=== PATIENT | male | born 1965 | race Hispanic/Latino ===

== ENCOUNTER 2018-01-11 09:14 | Outpatient (CLI) | payer BC ==
--- NOTE | 2018-01-11 11:58 | RAD ---
FIVE VIEWS CERVICAL SPINE: 01/11/2018 HISTORY: Carpal tunnel syndrome bilateral upper extremities. The patient is having neck pain and bilateral heath nd and finger numbness for 8 months. FINDINGS: C1 cervicothoracic junction is seen on the lateral view. Vertebral body heights are within normal li mits. No fracture or subluxation is seen. Mild degenerative changes are seen at the C5-6 level with osteophyte formation and slight narrowing of the intervertebral disk space. Prevertebral soft tissu es are within normal limits. Carotid artery calcifications are seen overlying the neck bilaterally. IMPRESSION: 1. Mild degenerative changes at C5-6 level, but no fracture or subluxation seen involving the cervica l spine. No other osseous abnormality. 2. Carotid artery calcifications overlying the neck bilaterally. POS: [facility]
== END 2018-01-11 09:15 | disposition home or self-care (01) ==
LOC: SCSRAD 09:14
PROVIDERS: ATTEND Psychiatry & Neurology Neurology
DX: G56.03 Carpal tunnel syndrome, bilateral upper limbs (principal); M47.892 Other spondylosis, cervical region; I65.23 Occlusion and stenosis of bilateral carotid arteries
CPT/HCPCS: 72040

== ENCOUNTER 2019-05-13 19:13 | Inpatient (IN) | payer BC ==
[~2019-05-13 19:13] MED LIST: ISOVUE-370 76%-LOCM 1 ML ONE; Lidocaine 1% PF 5 ML VIAL ONE; Ondansetron PF 4 MG/2 ML Vial ONE; PHENYLEPHRINE-NS 100 MCG/ML 10 ML SYRINGE ONE; PROPOFOL 200 MG/20 ML VIAL ONE; Rocuronium Bromide 10 MG/ML (10ML VIAL) ONE; Succinylcholine Chloride 20 MG/ML 10 ml SYRINGE FS ONE; ePHEDrine 50 MG/ML VIAL ONE
[2019-05-13] MEDS ORDERED: Adacel (T-DAP) 0.5 ML SYRINGE ONE (19:15)
[2019-05-13] MEDS ORDERED: Ketorolac Tromethamine 30 MG/ML VIAL ONE (19:20)
[2019-05-13] MEDS ORDERED: Fentanyl 100 MCG/2 ML VIAL ONE ×2 (19:20→20:31)
[2019-05-13 19:34] LABS: #Basophils 0.1 thou/uL (0.0-0.2); #Eosinphils 0.2 thou/uL (0.0-0.7); #Lymphocytes 1.9 thou/uL (1.20-3.40); #Monocytes 0.6 thou/uL (0.11-0.59); #Neutrophils 8.2 thou/uL (1.40-6.50); %Basophils 0.7 % (0.0-1.0); %Eosinophils 1.9 % (0.0-10.0); %Monocytes 5.5 % (0.0-10.0); Hemoglobin 14.6 g/dL (14.0-18.0); Mean Corpuscular HGB CONC 33.2 g/dL (32.0-36.0); Mean Corpuscular Hemoglobin 32.8 pg (27.0-31.0); Mean Corpuscular Volume 98.6 fL (78.0-98.0); Mean Platelet Volume 7.7 fL (7.4-10.4); Platelet Count 183 thou/uL (130-400); RBC Distribution Width 11.3 % (11.5-14.5); Red Blood Cell (RBC) Count 4.45 mill/uL (4.70-6.10); White Blood Cell (WBC) Count 10.9 thou/uL (4.8-10.8)
[2019-05-13 19:43] LABS: INR-International Normal Ratio 1.1; PTT 25.8 SEC (22.9-36.1); Prothrombin Time 14.3 SEC (12.0-14.7)
--- NOTE | 2019-05-13 19:46 | CT ---
CT BRAIN NONCONTRAST: DATE: 05/13/2019 HISTORY: Trauma FINDINGS: There is no evidence of acute intra-axial or extra-axial hemorrhage. There is no midline shift or any other mass effect. There is no extra-axial fluid collection. There is no evidence of obstructive hydrocephalus. Calvarium is intact. IMPRESSION: No acute intracranial findings.
[2019-05-13 19:48] LABS: ALT (SGPT) 51 U/L (8-55); AST (SGOT) 33 U/L (5-34); Albumin 4.2 g/dL (3.5-5.0); Alkaline Phosphatase 85 U/L (40-150); Anion Gap 20 mmol/L (10-20); BUN (Urea Nitrogen) 13 mg/dL (8.4-25.7); Bilirubin, Total 0.5 mg/dL (0.2-1.2); Calc. Creatinine Clearance 0 mL/min (70-130); Calcium 9.3 mg/dL (7.8-10.44); Carbon Dioxide 18 mmol/L (22-29); Chloride 102 mmol/L (98-107); Estimated GFR-MDRD 51; Globulin 3.3 g/dL (2.4-3.5); Glucose 121 mg/dL (70-105); Magnesium 2.1 mg/dL (1.6-2.6); Potassium 3.3 mmol/L (3.5-5.1); Protein, Total 7.5 g/dL (6.0-8.3); Sodium 137 mmol/L (136-145)
[2019-05-13] MEDS ORDERED: Heparin 10,000 UNITS/1 ML VIAL ONE (19:50)
--- NOTE | 2019-05-13 19:53 | CT ---
Exam: CT cervical spine without contrast HISTORY: Trauma. Pain. COMPARISON: None FINDINGS: No craniocervical dissociation. Appropriate alignment of the lateral masses of C1 and C2. Intact odon toid process Appropriate alignment of the facets. Soft tissue neck structures: No mass, lymphadenopathy or hematoma. No prevertebral soft tissue swelli ng. Upper mediastinum and lung apices: Opacification of the right lung apex, incompletely evaluated Central spinal canal: Neural foramina and central spinal canal are patent. Evaluation is limited by t echnique Vertebral bodies: Cervical spine vertebral body height is maintained. No fracture. IMPRESSION: 1. No fracture 2. Right upper lobe opacity, incompletely evaluated. Chest CT is recommended.
--- NOTE | 2019-05-13 19:54 | RAD ---
Exam: Chest one view HISTORY:Trauma. Pain. Comparison: None FINDINGS: Cardiac silhouette:Enlarged, likely due to technique Pulmonary vessels: Normal Costophrenic angles: Asymmetric opacification of the right hemithorax. LUNGS: No masses or consolidation. Pneumothorax: None Osseous abnormalities: None IMPRESSION: Asymmetric opacification the right hemithorax. Refer to chest CT for further detail.
[2019-05-13] MEDS ORDERED: metroNIDAZOLE 500 MG/100 ML BAG ONE (19:56)
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
[2019-05-13] MEDS ORDERED: Midazolam HCl 2 mg/2 ml Vial ONE (20:31)
[2019-05-13] MEDS ORDERED: Phenylephrine HCL 10 MG/ML VIAL ONE (20:31)
[2019-05-13] MEDS ORDERED: SUGAMMADEX SODIUM 200 MG/2 ML VIAL ONE (20:47)
[2019-05-13] MEDS ORDERED: hydrALAZINE 20 MG/ML VIAL SLOW IVP PRN (20:58)
[2019-05-13] MEDS ORDERED: TETANUS AND DIPHTHERIA TOX/PF 0.5 ML DISP.SYRIN IM ONE (20:58)
[2019-05-13] MEDS ORDERED: Morphine 4 MG/ML VIAL SLOW IVP PRN ×2 (20:58→21:17)
[2019-05-13] MEDS ORDERED: Dextrose 5% in Water 1,000 ML IV PRN (20:58)
[2019-05-13] MEDS ORDERED: Dextrose 50% Abboject 50 ML SYRINGE SLOW IVP PRN (20:58)
[2019-05-13] MEDS ORDERED: Morphine 2 MG/ML SYRINGE SLOW IVP PRN (20:58)
[2019-05-13] MEDS ORDERED: Ondansetron PF 4 MG/2 ML Vial IVP PRN (20:58)
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
[2019-05-13] MEDS: Sodium Chloride 0.9% 1,000 ML IV SCH (21:20)
[2019-05-13] MEDS ORDERED: Gabapentin 100 MG CAP PO SCH (21:30)
--- NOTE | 2019-05-13 21:32 | RAD ---
Exam: Chest one view HISTORY:Status post trauma. Chest tube placement. Comparison: 05/13/2019 at 7:20 PM FINDINGS: Interval placement of a right-sided chest tube with improved aeration of the right hemithorax. Patchy interstitial opacities do remain. The sidehole of the chest tube is just medial to the pleural margin. Linear opacity left lung base are also noted. IMPRESSION: 1. Improved aeration of the right lung, status post right-sided chest tube placement.
--- NOTE | 2019-05-13 21:45 | RAD ---
Exam:Right ankle 3 views HISTORY: Pain. Trauma. COMPARISON: None FINDINGS: Uncomplicated internal fixation hardware. No acute fracture. Nonspecific mild soft tissue s welling. IMPRESSION: Nonspecific mild soft tissue swelling. No fracture or perihardware lucency.
--- NOTE | 2019-05-13 21:46 | RAD ---
Exam:Right tibia and fibula 2 views HISTORY: Pain. Trauma. COMPARISON: None FINDINGS: Uncomplicated internal fixation hardware in the distal tibia and fibula. No fracture. No co rtical irregularity. No periosteal reaction. Distal lower extremity soft tissue swelling is noted. IMPRESSION: Soft tissue swelling. No fracture.
[2019-05-13 21:56] LABS: #Lymphocytes 0.9 thou/uL (1.20-3.40); #Monocytes 0.7 thou/uL (0.11-0.59); #Neutrophils 10.3 thou/uL (1.40-6.50); %Basophils 0.1 % (0.0-1.0); %Eosinophils 0.2 % (0.0-10.0); %Lymphocytes 7.8 % (21.0-51.0); %Monocytes 5.8 % (0.0-10.0); %Neutrophils 86.3 % (42.0-75.0); Hemoglobin 13.9 g/dL (14.0-18.0); Mean Corpuscular HGB CONC 34.6 g/dL (32.0-36.0); Mean Corpuscular Hemoglobin 34.1 pg (27.0-31.0); Mean Corpuscular Volume 98.7 fL (78.0-98.0); Mean Platelet Volume 7.7 fL (7.4-10.4); Platelet Count 161 thou/uL (130-400); RBC Distribution Width 11.3 % (11.5-14.5); Red Blood Cell (RBC) Count 4.08 mill/uL (4.70-6.10)
[2019-05-13 22:01] LABS: INR-International Normal Ratio 1.2; Prothrombin Time 14.9 SEC (12.0-14.7)
[2019-05-13 22:06] LABS: Lactic Acid 3.2 mmol/L (0.5-2.2)
[2019-05-13 22:09] LABS: Alcohol 24 mg/dL (Less than 10); Anion Gap 16 mmol/L (10-20); BUN (Urea Nitrogen) 12 mg/dL (8.4-25.7); Calc. Creatinine Clearance 0 mL/min (70-130); Calcium 8.7 mg/dL (7.8-10.44); Carbon Dioxide 21 mmol/L (22-29); Chloride 104 mmol/L (98-107); Estimated GFR-MDRD 60; Glucose 109 mg/dL (70-105); Magnesium 1.9 mg/dL (1.6-2.6); Phosphorus 4.2 mg/dL (2.3-4.7); Potassium 3.4 mmol/L (3.5-5.1); Sodium 138 mmol/L (136-145)
[2019-05-13] MEDS: traMADol HCl 50 MG TAB PO SCH (22:32)
[2019-05-13] MEDS: Famotidine/PF 20 mg/2ml Vial SLOW IVP SCH (22:34)
[2019-05-13] MEDS ORDERED: Potassium Chloride 40 MEQ in Premix Bag 1 BAG IVPB SCH (23:00)
[2019-05-13] MEDS ORDERED: Potassium Chloride 40 MEQ in Sodium Chloride 0.9% 500 ML IVPB SCH (23:00)
[2019-05-13 23:43] VITALS: BMI 37.0
[2019-05-13] MEDS ORDERED: Oxazepam 10 MG CAP PO SCH (23:59)
[2019-05-14] MEDS: Cyclobenzaprine 10 MG TAB PO PRN (00:10)
[2019-05-14] MEDS: Acetaminophen 1,000 MG in Premix Bag 1 BAG IVPB SCH ×3 (00:11→11:37)
[2019-05-14 00:25] LABS: Amphetamine Not Detected (NotDetected); Barbiturates Screen Not Detected (NotDetected); Benzodiazepine Screen Not Detected (NotDetected); Cocaine Metabolite Screen Not Detected (NotDetected); Medtox Control Line Valid? VALID (VALID); Medtox Reader # READER 4; Methadone Not Detected (NotDetected); Methamphetamine Not Detected (NotDetected); Opiate Screen Not Detected (NotDetected); Oxycodone Screen Not Detected (NotDetected); Phencyclidine (PCP) Not Detected (NotDetected); THC/Cannabinoid Screen Not Detected (NotDetected); Tricyclic Screen Not Detected (NotDetected)
[2019-05-14] MEDS ORDERED: Oxazepam 10 MG CAP PO SCH (00:45)
[2019-05-14] MEDS: traMADol HCl 50 MG TAB PO SCH ×4 (04:32→21:01)
[2019-05-14] MEDS: CEFAZOLIN 2 GM in Premix Bag 1 BAG IVPB SCH ×3 (04:32→20:46)
[2019-05-14] MEDS: Sodium Chloride 0.9% 1,000 ML IV SCH ×3 (04:37→23:52)
[2019-05-14 06:23] LABS: #Lymphocytes 1.2 thou/uL (1.20-3.40); #Monocytes 0.9 thou/uL (0.11-0.59); #Neutrophils 6.9 thou/uL (1.40-6.50); %Basophils 0.3 % (0.0-1.0); %Eosinophils 0.2 % (0.0-10.0); %Lymphocytes 13.3 % (21.0-51.0); %Neutrophils 76.2 % (42.0-75.0); Mean Corpuscular HGB CONC 33.4 g/dL (32.0-36.0); Mean Corpuscular Hemoglobin 33.4 pg (27.0-31.0); Mean Platelet Volume 7.8 fL (7.4-10.4); Platelet Count 134 thou/uL (130-400); RBC Distribution Width 11.4 % (11.5-14.5); Red Blood Cell (RBC) Count 3.89 mill/uL (4.70-6.10); White Blood Cell (WBC) Count 9.1 thou/uL (4.8-10.8)
[2019-05-14 06:45] LABS: Lactic Acid 1.1 mmol/L (0.5-2.2)
[2019-05-14 06:46] LABS: Phosphorus 4.1 mg/dL (2.3-4.7)
[2019-05-14 06:47] LABS: Anion Gap 11 mmol/L (10-20); BUN (Urea Nitrogen) 12 mg/dL (8.4-25.7); Calc. Creatinine Clearance 129 mL/min (70-130); Calcium 8.2 mg/dL (7.8-10.44); Carbon Dioxide 25 mmol/L (22-29); Chloride 105 mmol/L (98-107); Estimated GFR-MDRD 70; Glucose 109 mg/dL (70-105); Magnesium 2.1 mg/dL (1.6-2.6); Potassium 4.1 mmol/L (3.5-5.1); Sodium 137 mmol/L (136-145)
--- NOTE | 2019-05-14 07:55 | RAD ---
RADIOGRAPH CHEST 1 VIEW: DATE: 05/14/2019 TIME: 7:32 AM HISTORY: Follow-up right pneumothorax. COMPARISON: 05/13/2019 9:12 PM FINDINGS: Right-sided chest tube remains unchanged in position. There is a new finding of a very small right ap ical pneumothorax, estimated to be approximately 10% volume. Magnification of the cardiac shadow. Pulmonary venous prominence centrally. No consolidation. Lateral costophrenic angles remain sharp. No eris pulmonary edema. IMPRESSION: Reemergence of small right pneumothorax.
[2019-05-14] MEDS: Oxazepam 10 MG CAP PO SCH ×3 (08:29→23:35)
[2019-05-14] MEDS: Senokot S 8.6-50 MG TAB PO SCH ×2 (08:30→20:47)
[2019-05-14] MEDS: Famotidine/PF 20 mg/2ml Vial SLOW IVP SCH ×2 (08:30→20:46)
[2019-05-14] MEDS: Gabapentin 300 MG CAP PO SCH ×3 (08:30→20:47)
[2019-05-14] MEDS: Polyethylene Glycol 3350 17 GM Packet PO SCH (08:30)
[2019-05-14] MEDS ORDERED: Gabapentin 100 MG CAP PO SCH (09:00)
[2019-05-14] MEDS ORDERED: Enoxaparin Sodium 30 MG/0.3 ML SYRINGE SC SCH (09:00)
[2019-05-14] MEDS ORDERED: Ketorolac Tromethamine 30 MG/ML VIAL IVP SCH (09:45)
[2019-05-14 09:56] LABS: Actual Bicarbonate (HCO3a) 22.6 mEq/L (22-28); Base Excess (BEa) -2.8 mEq/L (-2.0 to +3.0); CO2 Tension 41.5 mmHg (35.0-45.0); Hemoglobin (Hb) 12.4 g/dL (14.0-18.0); O2 Tension (PaO2) 69.5 mmHg (80.0-100.0); pH, Arterial 7.35 (7.35-7.45)
[2019-05-14 09:57] LABS: Calcium, Ionized 1.14 mmol/L (1.12-1.30); Carboxyhemoglobin (COHb) 1.6 gm% (0.0-3.0); Potassium - ABG Lab 3.68 mmol/L (3.70-5.30); Puncture Site RRA
[2019-05-14 09:58] LABS: ALV-art Gradient 27.305 (0-20)
[2019-05-14] MEDS ORDERED: Calcium Chloride 1 GM/10 ML Abboject SYRINGE IVP SCH (10:15)
[2019-05-14] MEDS: Ketorolac Tromethamine 30 MG/ML VIAL IVP SCH ×3 (10:34→20:47)
[2019-05-14] MEDS ORDERED: Hydrocortisone Sod Succ/PF 100 mg/2 ml Vial IVP SCH ×2 (10:45→10:47)
[2019-05-14] MEDS ORDERED: Morphine 4 MG/ML VIAL SLOW IVP PRN (12:23)
[2019-05-14] MEDS ORDERED: Acetaminophen 500 MG TAB PO SCH (12:30)
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
[2019-05-14] MEDS: Hydrocortisone Sod Succ/PF 100 mg/2 ml Vial IVP SCH ×2 (17:18→23:35)
[2019-05-14] MEDS: Acetaminophen 500 MG TAB PO SCH ×2 (17:18→23:34)
[2019-05-14] MEDS ORDERED: Ketorolac Tromethamine 15 MG/ML VIAL IVP SCH (18:00)
[2019-05-15] MEDS: CEFAZOLIN 2 GM in Premix Bag 1 BAG IVPB SCH (05:29)
[2019-05-15] MEDS: traMADol HCl 50 MG TAB PO SCH ×4 (05:30→21:30)
[2019-05-15] MEDS: Acetaminophen 500 MG TAB PO SCH ×3 (05:30→21:29)
[2019-05-15] MEDS: Hydrocortisone Sod Succ/PF 100 mg/2 ml Vial IVP SCH ×3 (05:31→21:29)
[2019-05-15] MEDS: Ketorolac Tromethamine 30 MG/ML VIAL IVP SCH ×4 (05:32→21:30)
[2019-05-15 05:34] LABS: #Lymphocytes 0.9 thou/uL (1.20-3.40); #Monocytes 0.6 thou/uL (0.11-0.59); #Neutrophils 7.2 thou/uL (1.40-6.50); %Basophils 0.2 % (0.0-1.0); %Eosinophils 0.5 % (0.0-10.0); %Monocytes 7.1 % (0.0-10.0); %Neutrophils 82.3 % (42.0-75.0); Hemoglobin 11.7 g/dL (14.0-18.0); Mean Corpuscular HGB CONC 33.7 g/dL (32.0-36.0); Mean Corpuscular Hemoglobin 34.3 pg (27.0-31.0); Mean Platelet Volume 8.2 fL (7.4-10.4); Platelet Count 125 thou/uL (130-400); RBC Distribution Width 11.3 % (11.5-14.5); Red Blood Cell (RBC) Count 3.41 mill/uL (4.70-6.10); White Blood Cell (WBC) Count 8.7 thou/uL (4.8-10.8)
[2019-05-15 06:11] LABS: Anion Gap 8 mmol/L (10-20); BUN (Urea Nitrogen) 8 mg/dL (8.4-25.7); CK (CPK) 834 U/L (30-200); Calc. Creatinine Clearance 181 mL/min (70-130); Calcium 8.7 mg/dL (7.8-10.44); Carbon Dioxide 25 mmol/L (22-29); Chloride 109 mmol/L (98-107); Estimated GFR-MDRD Greater than 90; Glucose 112 mg/dL (70-105); Magnesium 2.2 mg/dL (1.6-2.6); Phosphorus 2.6 mg/dL (2.3-4.7); Potassium 4.2 mmol/L (3.5-5.1); Sodium 138 mmol/L (136-145)
[2019-05-15] MEDS ORDERED: PHOS-NAK 1 PKT PACK PO SCH (08:30)
--- NOTE | 2019-05-15 09:05 | RAD ---
XR Chest 1 View Portable History: Chest tube placement Comparison: Radiograph prior day Findings: No significant residual pneumothorax. The right thoracostomy tube appears be repositioned i n the comparison examination good position. Left lung is clear. Terrance along the right hemithorax Impression: Max no significant pneumothorax after chest tube repositioning.
[2019-05-15] MEDS: Oxazepam 10 MG CAP PO SCH ×2 (09:27→16:25)
[2019-05-15] MEDS: Senokot S 8.6-50 MG TAB PO SCH ×2 (09:27→21:29)
[2019-05-15] MEDS: Gabapentin 300 MG CAP PO SCH ×3 (09:29→21:29)
[2019-05-15] MEDS: Famotidine/PF 20 mg/2ml Vial SLOW IVP SCH ×2 (09:30→21:29)
[2019-05-15] MEDS: Polyethylene Glycol 3350 17 GM Packet PO SCH (09:30)
[2019-05-15] MEDS: Sodium Chloride 0.9% 1,000 ML IV SCH (18:32)
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
--- NOTE | 2019-05-15 23:01 | RAD ---
Exam: Chest one view HISTORY:Right-sided chest tube placement Comparison: 05/15/2019 at 5:33 AM FINDINGS: Stable right-sided chest tube. No definite pneumothorax. Persistent cardiomegaly. Stable changes of the lung parenchyma. IMPRESSION: No significant interval change. No definite pneumothorax.
[2019-05-16] MEDS: Hydrocortisone Sod Succ/PF 100 mg/2 ml Vial IVP SCH ×2 (01:13→05:34)
[2019-05-16] MEDS: Acetaminophen 500 MG TAB PO SCH ×5 (01:14→23:24)
[2019-05-16] MEDS: Oxazepam 10 MG CAP PO SCH ×4 (01:14→23:24)
[2019-05-16] MEDS: traMADol HCl 50 MG TAB PO SCH ×4 (05:33→21:57)
[2019-05-16] MEDS: Ketorolac Tromethamine 30 MG/ML VIAL IVP SCH ×2 (05:33→10:18)
[2019-05-16 05:34] LABS: #Lymphocytes 0.9 thou/uL (1.20-3.40); #Monocytes 0.6 thou/uL (0.11-0.59); #Neutrophils 7.2 thou/uL (1.40-6.50); %Basophils 0.3 % (0.0-1.0); %Eosinophils 0.3 % (0.0-10.0); %Lymphocytes 10.5 % (21.0-51.0); %Monocytes 6.4 % (0.0-10.0); %Neutrophils 82.5 % (42.0-75.0); Hemoglobin 11.6 g/dL (14.0-18.0); Mean Corpuscular HGB CONC 33.6 g/dL (32.0-36.0); Mean Corpuscular Hemoglobin 34.4 pg (27.0-31.0); Mean Platelet Volume 8.9 fL (7.4-10.4); Platelet Count 137 thou/uL (130-400); RBC Distribution Width 11.3 % (11.5-14.5); Red Blood Cell (RBC) Count 3.38 mill/uL (4.70-6.10); White Blood Cell (WBC) Count 8.7 thou/uL (4.8-10.8)
[2019-05-16 06:01] LABS: Anion Gap 10 mmol/L (10-20); BUN (Urea Nitrogen) 8 mg/dL (8.4-25.7); Calc. Creatinine Clearance 177 mL/min (70-130); Calcium 8.8 mg/dL (7.8-10.44); Carbon Dioxide 26 mmol/L (22-29); Chloride 106 mmol/L (98-107); Estimated GFR-MDRD Greater than 90; Glucose 127 mg/dL (70-105); Magnesium 2.2 mg/dL (1.6-2.6); Phosphorus 2.5 mg/dL (2.3-4.7); Potassium 3.9 mmol/L (3.5-5.1); Sodium 138 mmol/L (136-145)
[2019-05-16] MEDS ORDERED: Potassium Phosphate 15 MMOL in Sodium Chloride 0.9% 250 ML 250 ML IVPB SCH (08:00)
--- NOTE | 2019-05-16 08:54 | RAD ---
CHEST 1 VIEW: Date: 05/16/19 INDICATION: History of right-sided chest tube placement. IMPRESSION: Right-sided thoracostomy tube is unchanged. Surgical fabian overlying the right upper lobe are stabl e. Surgical clips within the right superior mediastinal region are similar appearing. No pneumothorax is evident. Cardiomegaly is stable. POS: [facility]
[2019-05-16] MEDS: Gabapentin 300 MG CAP PO SCH ×3 (08:56→19:59)
[2019-05-16] MEDS: Senokot S 8.6-50 MG TAB PO SCH ×2 (08:57→19:59)
[2019-05-16] MEDS: Allopurinol 100 MG TAB PO SCH ×2 (08:58→19:58)
[2019-05-16] MEDS: Polyethylene Glycol 3350 17 GM Packet PO SCH (09:00)
[2019-05-16] MEDS: Enoxaparin Sodium 30 MG/0.3 ML SYRINGE SC SCH ×2 (10:06→19:58)
[2019-05-16] MEDS ORDERED: Ibuprofen 800 MG TAB PO PRN (11:10)
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
[2019-05-17] MEDS: traMADol HCl 50 MG TAB PO SCH ×4 (03:30→21:38)
[2019-05-17] MEDS: Acetaminophen 500 MG TAB PO SCH ×3 (05:53→17:40)
[2019-05-17] MEDS: Gabapentin 300 MG CAP PO SCH ×3 (08:06→20:16)
[2019-05-17] MEDS: Enoxaparin Sodium 30 MG/0.3 ML SYRINGE SC SCH ×2 (08:06→20:16)
[2019-05-17] MEDS: Allopurinol 100 MG TAB PO SCH ×2 (08:06→20:16)
[2019-05-17] MEDS: Oxazepam 10 MG CAP PO SCH ×2 (08:07→15:25)
[2019-05-17] MEDS: Senokot S 8.6-50 MG TAB PO SCH ×2 (08:07→20:23)
[2019-05-17] MEDS: Polyethylene Glycol 3350 17 GM Packet PO SCH (08:07)
--- NOTE | 2019-05-17 08:39 | RAD ---
CHEST ONE VIEW: HISTORY: Right-sided chest tube. COMPARISON: 05/16/2019 FINDINGS: Stable postoperative changes of the right hemithorax. Stable cardiac silhouette and stable opacifica tion of the lung parenchyma. No pleural effusion. Pneumothorax is not appreciated. IMPRESSION: No significant interval change. POS: [facility]
--- NOTE | 2019-05-17 09:43 | RAD ---
RADIOGRAPH CHEST 1 VIEW: DATE: 05/17/2019 TIME: 8:49 AM HISTORY: 54-year-old male follow-up right pneumothorax. COMPARISON: 05/17/2019 5:17 AM FINDINGS: Chest tube remains with distal tip near right apex. No pneumothorax visualized. Horizontal array of s kin fabian across right upper chest. Surgical clips overlie right upper hilum/reduced item. Mild streaky density right upper lobe. No consolidation or pulmonary edema. No cardiomegaly. The lateral c ostophrenic angles are sharp. No interval change. IMPRESSION: 1) no interval change. 2) right-sided chest tube. 3) no pneumothorax.
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
[2019-05-17] MEDS: Cyclobenzaprine 10 MG TAB PO PRN (17:46)
[2019-05-18] MEDS: Oxazepam 10 MG CAP PO SCH ×3 (00:34→15:49)
[2019-05-18] MEDS: Acetaminophen 500 MG TAB PO SCH ×4 (00:34→16:32)
[2019-05-18] MEDS: traMADol HCl 50 MG TAB PO SCH ×3 (03:50→15:49)
--- NOTE | 2019-05-18 07:51 | RAD ---
Chest one view HISTORY: Pneumothorax. Follow-up. COMPARISON: 05/18/2019. FINDINGS: Cardiac silhouette is magnified by projection. Pulmonary vasculature upper limits of normal . Mediastinum is midline. Postoperative hilum. Right thoracostomy tube in place with proximal sidehole just lateral to the chest wall. Minimal right apical pneumothorax IMPRESSION: Minimal right apical pneumothorax. Chest tube has been pulled back slightly, with sidehole just outside of the chest wall.
[2019-05-18] MEDS: Allopurinol 100 MG TAB PO SCH (09:23)
[2019-05-18] MEDS: Polyethylene Glycol 3350 17 GM Packet PO SCH (09:23)
[2019-05-18] MEDS: Gabapentin 300 MG CAP PO SCH ×2 (09:23→15:49)
[2019-05-18] MEDS: Enoxaparin Sodium 30 MG/0.3 ML SYRINGE SC SCH (09:27)
[2019-05-18] MEDS: Senokot S 8.6-50 MG TAB PO SCH (12:05)
--- NOTE | 2019-05-18 12:15 | RAD ---
AP CHEST: Date: 05/18/19 HISTORY: Surgical follow-up. Chest tube removal. COMPARISON: Film earlier this morning. FINDINGS: Right chest tube has been removed. Focal density along the right chest wall may be pleural thickening . Mild subcutaneous emphysema. No significant pneumothorax. Skin fabian again noted overlying the ri ght chest. Lungs appear well aerated and clear. POS: [facility]
[2019-05-18 15:49] VITALS: BP 127/77; TEMP 97.8
== END 2019-05-18 18:12 | disposition home or self-care (01) | DRG 981 ==
LOC: ERS 19:13 → SDC/OP 20:24 → CCU 20:58 → SURG B 05-14 14:30
PROVIDERS: ADMIT Surgery; ATTEND Surgery
PROC: 03L Upper Arteries, Occlusion (ICD-10-PCS; principal; 2019-05-13)
PROC: 0W9930Z Drainage of Right Pleural Cavity with Drainage Device, Percutaneous Approach (ICD-10-PCS; 2019-05-13)
DX: S27.2XXA Traumatic hemopneumothorax, initial encounter (principal); S21.331A Puncture wound without foreign body of right front wall of thorax with penetration into thoracic cavity, initial encounter; S22.41XA Multiple fractures of ribs, right side, initial encounter for closed fracture; N17.9 Acute kidney failure, unspecified; J93.82 Other air leak; E66.9 Obesity, unspecified; E83.39 Other disorders of phosphorus metabolism; M10.9 Gout, unspecified; W55.22XA Struck by cow, initial encounter; Y93.89 Activity, other specified; Y92.89 Other specified places as the place of occurrence of the external cause
CPT/HCPCS: 36415; 70450; 70491; 71045; 71260; 72125; 74177; 80048; 80053; 80306; 80307; 82533; 82550; 82805; 83605; 83735; 84100; 84484; 85025; 85610; 85730; 86850; 86900; 86901; 90715; 96360; 96374; 96375; G0390; J0131; J0360; J0690; J1644; J1650; J1720; J1885; J2001; J2250; J2270; J2370; J2405; J2704; J3010; J3480; J3490; J7050; P9045; Q9966; S0028

== ENCOUNTER 2019-05-23 12:15 | Outpatient (CLI) | payer BC ==
--- NOTE | 2019-05-23 14:54 | RAD ---
PA AND LATERAL CHEST: HISTORY: Followup of rib fractures. Right-sided pain. FINDINGS: Surgical fabian are seen over the right chest and mediastinum. Heart size is within normal limits. Lungs are clear of any infiltrative process. There are no signs of pneumothorax. IMPRESSION: Postoperative change. No other findings. POS: [facility]
== END 2019-05-23 12:16 | disposition home or self-care (01) ==
LOC: RAD 12:15
PROVIDERS: ATTEND Physician Assistant
DX: S22.41XD Multiple fractures of ribs, right side, subsequent encounter for fracture with routine healing (principal); Z98.890 Other specified postprocedural states
CPT/HCPCS: 71046

== ENCOUNTER 2019-06-06 12:23 | Outpatient (CLI) | payer BC ==
--- NOTE | 2019-06-06 12:37 | RAD ---
EXAM: Chest 2 views: HISTORY: Multiple rib fractures with chest pain COMPARISON: 05/23/2019 FINDINGS: There is a normal-sized cardiomediastinal silhouette. There is no evidence of consolidation, mass, or pleural effusion. The bones are unremarkable. IMPRESSION: No evidence of acute cardiopulmonary disease
== END 2019-06-06 12:24 | disposition home or self-care (01) ==
LOC: RAD 12:23
PROVIDERS: ATTEND Physician Assistant
DX: S22.41XD Multiple fractures of ribs, right side, subsequent encounter for fracture with routine healing (principal)
CPT/HCPCS: 71046

== ENCOUNTER 2021-04-24 13:42 | Outpatient (CLI) | payer BC | END 2021-04-24 13:43 | disposition home or self-care (01) | LOC: TBSIIMAG 13:42 | PROVIDERS: ATTEND Orthopaedic Surgery | DX: M23.91 Unspecified internal derangement of right knee (principal); S83.281A Other tear of lateral meniscus, current injury, right knee, initial encounter; S83.241A Other tear of medial meniscus, current injury, right knee, initial encounter; M25.461 Effusion, right knee; R93.7 Abnormal findings on diagnostic imaging of other parts of musculoskeletal system ==

== ENCOUNTER 2021-06-28 05:38 | Day surgery (SDC) | payer BC ==
[2021-06-26 11:08] VITALS: BMI 38.7
[2021-06-28] MEDS ORDERED: Fentanyl 100 MCG/2 ML VIAL ONE ×4 (06:45→08:59)
[2021-06-28] MEDS ORDERED: Midazolam HCl 2 mg/2 ml Vial ONE (06:50)
[2021-06-28] MEDS ORDERED: Lidocaine 2% PF 5 ML VIAL ONE (07:45)
[2021-06-28] MEDS ORDERED: Ondansetron PF 4 MG/2 ML Vial ONE (07:45)
[2021-06-28] MEDS ORDERED: PROPOFOL 200 MG/20 ML VIAL ONE (07:45)
[2021-06-28] MEDS ORDERED: Lidocaine 1% PF 5 ML VIAL ONE (07:45)
[2021-06-28] MEDS ORDERED: Bupivacaine PF 0.5% 30 ML VIAL ONE (07:45)
[2021-06-28] MEDS ORDERED: ePHEDrine 50 MG/ML VIAL ONE (07:45)
[2021-06-28] MEDS ORDERED: Dexamethasone 20 MG/5 ML VIAL ONE (07:45)
[2021-06-28] MEDS ORDERED: Lidocaine 1% (PF) 30 ML VIAL ONE (07:54)
== END 2021-06-28 10:55 | disposition home or self-care (01) ==
LOC: SDC 05:38
PROVIDERS: ATTEND Orthopaedic Surgery
PROC: 0SBD4ZZ Excision of Left Knee Joint, Percutaneous Endoscopic Approach (ICD-10-PCS; principal; 2021-06-28)
DX: S83.232A Complex tear of medial meniscus, current injury, left knee, initial encounter (principal); S83.272A Complex tear of lateral meniscus, current injury, left knee, initial encounter; M84.451A Pathological fracture, right femur, initial encounter for fracture; M10.9 Gout, unspecified; Z79.899 Other long term (current) drug therapy; X50.1XXA Overexertion from prolonged static or awkward postures, initial encounter
CPT/HCPCS: J0690; J1100; J2001; J2250; J2405; J2704; J3010; J3490; S0020